=== PATIENT | male | born 1940 | race Caucasian/White ===

== ENCOUNTER → 2016-08-22 | Outpatient (CLI) | payer MEDICARE, OTHER ==
[2015-11-11 15:00] VITALS: BP 128/53
[~2016-08-22] MED LIST: AMLO5TAB2 PO; ASPI-482 PO; DOCU-27 PO; ESOM40CA PO; METH750T2 PO; OLME1TAB5 PO; OXYC1TAB7 PO; citracal PO
--- NOTE | 2016-08-22 10:14 | KCIC ---
4 view lumbar spine dated 08/22/2016. No comparison available. CLINICAL INDICATION: Bilateral leg pain, right greater than left. History of prior fusion. FINDINGS: Lateral and flexion-extension views were obtained. There is been laminectomy and posterior lateral fusion from L2 to L5 with posterior fusion rods and transpedicular screws in place. No significant radiolucency along the screw margins. No evidence of hardware fracture. There is very slight retrolisthesis of T12 on L1 and L1 on L2 which is stable on flexion and extension views. Sagittal alignment is otherwise anatomic. Multilevel spondylosis. IMPRESSION: 1. Laminectomy and posterolateral fusion from L2 to L5 with no apparent complication. 2. Very slight retrolisthesis of T12 on L1 and L1 on L2 with no evidence of instability on flexion-extension views. Electronically signed by: Burak Martin MD (08/22/2016 10:11 AM)
== END | disposition home or self-care (01) ==
LOC: KCIC 09:17
PROVIDERS: ATTEND Neurological Surgery
DX: M43.10 Spondylolisthesis, site unspecified (principal); M79.605 Pain in left leg; M79.604 Pain in right leg
CPT/HCPCS: 72100

== ENCOUNTER → 2016-12-11 | Outpatient (CLI) | payer MEDICARE, OTHER ==
[2015-11-11 15:00] VITALS: BP 128/53
[~2016-12-11] MED LIST changes: +DOCU-109 PO; -DOCU-27 PO; +GADOBUTROL 10 MMOL/10 ML VIAL IV ONE; +OLME1TAB25 PO; -OLME1TAB5 PO
--- NOTE | 2016-12-11 11:57 | KCIC ---
INDICATION: Pain extending into both lower extremities. Prior fusions. TECHNIQUE: Sagittal T1, sagittal T2, sagittal STIR, sagittal postcontrast, axial T1, axial T2, and axial postcontrast sequences are provided. 10 mL of intravenous Gadavist was administered without complication. Despite repeat imaging there is motion degradation. Comparison CT is from November 08, 2015 and there is a MRI June 19, 2015. FINDINGS: There is no change in alignment. There is hardware artifact from pedicle screw and page instrumentation and interbody bone cages which extends from L2 to L5. There is fatty replacement of the endplates at L4-L5. There is disc desiccation at L1-L2 and L5-S1. Conus medullaris is normal in signal intensity and in position. There is no pathologic enhancement. Allowing for motion degradation and hardware artifact, degenerative findings will be estimated below. The numbering system assumes 5 lumbar type vertebral bodies. L1-L2: There is facet and ligamentum flavum hypertrophy with mild foraminal narrowing. L2-L3: Interbody fusion has been extended to include this level since the prior MRI. Hardware artifact from the bone cage extends beyond the posterior margin of the vertebral bodies, appears to narrow the right lateral recess. There is also facet hypertrophy and mild canal stenosis. Decompression likely has been performed. L3-L4: There is probably foraminal narrowing bilaterally secondary to facet hypertrophy. There is hardware artifact limiting evaluation. L4-L5: There is endplate irregularity but no canal stenosis. There is probably mild foraminal narrowing. There is facet hypertrophy. L5-S1: Minimal disc bulge and facet hypertrophy is noted, high-grade bilateral foraminal narrowing is suspected IMPRESSION: 1. Interval extension of the fusion hardware to the level of L2-L3. The L2-L3 bone cage appears to extend beyond the posterior margin of the vertebral bodies. There is probably right lateral recess narrowing at this level. If further workup is required, consider CT. Because of blooming artifact from the hardware, MRI can overestimate the degree of retropulsion of bone cages. 2. Postsurgical changes throughout the remainder of the lumbar spine are similar to prior. Foraminal narrowing at several levels is suspected. Electronically signed by: Benny Contreras MD (12/11/2016 11:54 AM) [facility]
== END | disposition home or self-care (01) ==
LOC: KCIC MRI 08:50
PROVIDERS: ATTEND Neurological Surgery
DX: M54.5 Low back pain (principal); G89.29 Other chronic pain
CPT/HCPCS: 72158; 82565; A9585

== ENCOUNTER → 2017-01-28 | Outpatient (CLI) | payer MEDICARE, OTHER ==
[2015-11-11 15:00] VITALS: BP 128/53
[~2017-01-28] MED LIST changes: +AMLO10TA2 PO; -GADOBUTROL 10 MMOL/10 ML VIAL IV ONE; +IOHEXOL 180 MG/ML 10 ML VIAL. ONE; +PRAV40TA2 PO; +methylPREDNISolone ACETATE 40 MG/ML VIAL. ONE; +methylPREDNISolone ACETATE 80 MG/ML VIAL. ONE
--- NOTE | 2017-01-29 00:19 | PAIN ---
DATE OF SERVICE: 01/28/2017 INITIAL CONSULTATION FOR PAIN CLINIC CHIEF COMPLAINT: Back and bilateral lower extremity pain. HISTORY OF PRESENT ILLNESS: This is a 77-year-old male who presents with history of pain and low back and bilateral lower extremities, more on the right than the left that present bilaterally. This is worse over the past 2 years or so. He has had surgery for instrumentation and then removal of instrumentation and re-instrumentation with multilevel fusion from L1 through L5, which has gradually been increasing not resulted with any specific injury or accident he is aware of, but did very well after the last surgery, but the pain has been returning now once again from his surgery of October 2015. Patient reports no loss of motor function, but significant fatigability in the lower extremities, significant weakness with walking and ambulating, better with sitting or lying down, which generally is awaking him up from sleep, but can occasionally ____ does affect his ability to walk significantly and he is using a cane sometimes, does not have it with him today. He has previously had physical therapy, also previous epidural injections prior to his last surgery and ongoing physical therapy as well. The patient has tried Aleve for the pain, which helps to about a 25% level of decreased pain, but not any further than that. The patient reports disability rate from 0-10, 10 being the worst, as an 8 with family and home responsibilities and recreations as well as occupation, 6 with social activity, sexual behavior, self care, and life support activities. Patient did have MRI scan of the lumbar spine showing hardware extension at the L2-L3 region with interbody fusion cage appearance of migrated posteriorly in the right side, narrowing in the right lateral reset with mild canal stenosis as well. Patient reports again no loss of motor function, but significant fatigability mostly of the right side compared to the left with ambulation. PAST MEDICAL HISTORY: Significant for hypertension, severe smoking, quit many years ago, history of melanoma in 2011 on his back, which has been surgically excised, history of gastroesophageal reflux, hyperlipidemia, peripheral neuropathy, arthritis and osteoporosis. PREVIOUS SURGERIES: Include lumbar fusion as noted, melanoma removed as well, bilateral cataract extractions, left hand trigger finger release. CURRENT MEDICATIONS: Include Benicar, aspirin, Nexium, amlodipine, and pravastatin. ALLERGIES: The patient has no known drug allergies. FAMILY HISTORY: Significant for cancer, blood pressure disorder, skin cancer, and melanoma. SOCIAL HISTORY: The patient quit smoking many years ago, drinks about 1 or 2 alcoholic drinks a month on average. He is , lives with his spouse. Lives locally in [place], [place] and is currently retired. REVIEW OF SYSTEMS: The patient's review of systems is positive for those items mentioned in the history of present illness. All systems reviewed and otherwise negative. It is complete, full and well documented on the patient's chart. PHYSICAL EXAMINATION: VITAL SIGNS: Today, the patient's blood pressure is 151/72, pulse 50, respirations 16, temperature is 98.1 degrees Fahrenheit, height is 6 feet 1 inch, weight is 265 pounds. GENERAL: The patient is awake, alert, oriented and appropriate, very pleasant demeanor. HEENT: Head shows normocephalic, atraumatic. Extraocular movements are intact and symmetrical. Oral cavity, mucous membranes are moist and pink. Dentition is intact. NECK: Shows anterior throat supple without palpable lymphadenopathy noted. Swallow reflex is symmetrical. CHEST: Shows normal on inspection. Breath sounds are clear to auscultation bilaterally. HEART: Shows S1 and S2 clear. No murmurs auscultated. ABDOMEN: Soft, nontender, nondistended. Obese. No palpable organomegaly is noted. No rebound or guarding demonstrated. BACK: Shows spine grossly in the midline. Normal appearing cervical lordotic curvature, thoracic kyphotic curvature, flattening of lumbar lordotic curvature with previously well-healed surgical scars noted in the lumbar distribution x 5. With inspection, the patient's paraspinous musculature appears roughly symmetrical in the lumbar distribution with palpation shows moderate tenderness at the upper, middle and lower distribution of paraspinous muscles bilaterally without radiation without trigger points. The patient shows good rotational motion both laterally as well as extension flexion with some minor limitation with extension, minor limitation on flexion to about 40 degrees and not 45, but without significant pain reported on limitation from previous surgery and mechanical limitation. The patient's lower extremities show deep tendon reflexes at 1+ in the patellar and tendo-calcaneus tendons. Motor exam is strong with dorsiflexion and extension, quadriceps and hamstring flexion rated at 5/5 and equal. Straight leg raise noted to be negative for reproduction of radicular symptoms bilaterally. Peripheral pulses are 1+ posterior tibial and dorsalis pedis pulses. No peripheral edema is noted. No clubbing or cyanosis. Gaenslen's and Marcel's maneuvers are negative bilaterally as well. The patient is able to stand, stand on his toes, but loses balance very quickly. He has a bit of a forward flexed gait and has some shuffled to his gait as well. He does not appear to favor the right or left lower extremity significantly. Again, he is not using any assistive devices to ambulate on his visit today. IMPRESSION: 1. This is a 77-year-old male with long history of low back pain, bilateral lower extremity pain, increasing since surgery in October 2015, initially quite well resolved, worse on the right than the left. 2. MRI scan of the lumbar spine is noted. 3. Extensive history of surgical decompression and instrumentation of the lumbar spine. 4. Hypertension. 5. History of melanoma. PLAN: Options were discussed with the patient including conservative medical management, physical examination and interventional techniques. He would like to pursue interventional techniques. We discussed a lumbar epidural steroid injection using description as well as anatomical models to describe the procedure. Risks were then discussed including but not limited to bleeding, infection, possibility of epidural hematoma, and subsequent neurological compromise, dural puncture, headaches, spinal cord and/or nerve damage, side effects of steroid medication and poor results regarding pain control. The patient understands and wishes to proceed. The patient will return to clinic in approximately 2 weeks for followup. He was counseled to return appointment, activity level and side effects to be aware of. DIAGNOSES: Lumbar radiculopathy, lumbar spinal stenosis, and post lumbar laminectomy syndrome. PROCEDURE: Lumbar epidural steroid injection in translaminal approach at the L2-L3 level using C-arm fluoroscopic guidance and a sterile prep and drape using local anesthetic. MEDICATIONS INJECTED: A total of 120 mg Depo-Medrol plus 10 mL preservative-free normal saline and 2 mL of Isovue for contrast. CONDITION ON DISCHARGE: Stable. The patient tolerated the procedure well, had no complications. DANAE CHOWDHURY MD DR: EVA/angie JOB#: [id number] / [id number]
== END | disposition home or self-care (01) ==
LOC: PNCL 12:57
PROVIDERS: ATTEND Anesthesiology
DX: M48.061 Spinal stenosis, lumbar region without neurogenic claudication (principal); M54.16 Radiculopathy, lumbar region; M96.1 Postlaminectomy syndrome, not elsewhere classified; I10 Essential (primary) hypertension; Z85.820 Personal history of malignant melanoma of skin
CPT/HCPCS: 62323; J1030; J1040

== ENCOUNTER → 2017-02-11 | Outpatient (CLI) | payer MEDICARE, OTHER ==
[2015-11-11 15:00] VITALS: BP 128/53
--- NOTE | 2017-02-11 19:58 | PAIN ---
DATE OF SERVICE: 02/11/2017 DIAGNOSES: Lumbar radiculopathy with lumbar spinal stenosis and post-lumbar laminectomy syndrome. HISTORY OF PRESENT ILLNESS: The patient is a 77-year-old male who returns for followup status post lumbar epidural steroid injection x 1. The patient reports about 50% improvement initially, but the pain returning now in the low back, bilateral lower extremities, basically at baseline over the first 2 weeks or so. The patient reports worse pain after the injection. It took about 2 days for that to go down before the pain was really noticeably better. The patient reports still across the low back and the bilateral lower extremities, posteriorly in the thighs and into the calves as well, rates it a 9 on a scale of 10 at its worst, 7 on average and a 5 at its least, is a 5 today. The patient reports an aching, dull, tingling, cramping, radiating constant pain. The patient reports becoming again more like near baseline or almost to that point. The patient reports it does not awaken him from sleep at night; is better with lying down or sitting; worse with standing, walking, changing positions. The patient reports no new motor or sensory deficits, no new bowel or bladder incontinence. PHYSICAL EXAMINATION: VITAL SIGNS: The patient's blood pressure 139/71, pulse 67, respirations 16, temperature 98.1 degrees Fahrenheit. Height 6 feet 1 inch, weight is 277 pounds. GENERAL: The patient is awake, alert, oriented, appropriate, very pleasant demeanor. HEENT: Head shows normocephalic, atraumatic. Extraocular movements are intact, symmetrical. Oral cavity, mucous membranes are moist and pink. Dentition is intact. NECK: Shows anterior throat supple without palpable lymphadenopathy noted. Swallow reflex is symmetrical. CHEST: Shows normal on inspection. Breath sounds are clear to auscultation bilaterally. HEART: Shows S1 and S2 clear. ABDOMEN: Soft, nontender, nondistended. No palpable organomegaly. No rebound or guarding demonstrated. BACK: Shows spine grossly midline. Well-healed surgical scarring is noted in the lumbar distribution, lumbar flattening of the curvature. Lumbar paraspinous muscle shows symmetrical both with palpation, shows some moderate tenderness bilaterally only diffusely without radiation. No tenderness over the sacrum or sacroiliac regions. Lower extremities showed deep tendon reflexes at 1+ in the patellar and tendo calcaneus tendons. Motor exam is strong with 5/5 dorsiflexion, extension, quadriceps and hamstring flexion and symmetrical. Peripheral pulses are 1+ posterior tibial and dorsalis pedis pulses. No peripheral edema is noted. Options were discussed with the patient and the patient's old chart was reviewed as his current medication regimen and updated. Current review of systems updated today as well. We will proceed with a second lumbar epidural steroid injection today with fluoroscopic guidance. Risks were again discussed including, but not limited to bleeding, infection, possibility of epidural hematoma, subsequent neurological compromise, dural puncture, headaches, spinal cord and/or nerve damage, side effects of steroid medication and poor results regarding pain control. The patient understands and wishes to proceed. The patient will return to clinic in approximately 2 weeks for followup, was counseled on return appointment, activity level and side effects to be aware of. DIAGNOSES: Lumbar radiculopathy with lumbar spinal stenosis and post-lumbar laminectomy syndrome. PROCEDURES: Lumbar epidural steroid injection in translaminar approach at L5-S1 level using a C-arm fluoroscopic guidance under sterile prep and drape using local anesthetic. MEDICATION INJECTED: A total of 120 mg Depo-Medrol plus 10 mL of preservative-free normal saline and 2 mL of Isovue for contrast. CONDITION AT DISCHARGE: Stable. The patient tolerated procedure well, had no complications. DANAE CHOWDHURY MD DR: EVA/angie JOB#: [id number] / [id number]
== END | disposition home or self-care (01) ==
LOC: PNCL 09:31
PROVIDERS: ATTEND Anesthesiology
DX: M48.061 Spinal stenosis, lumbar region without neurogenic claudication (principal); M96.1 Postlaminectomy syndrome, not elsewhere classified; M54.16 Radiculopathy, lumbar region; G62.9 Polyneuropathy, unspecified; E66.9 Obesity, unspecified; Z86.69 Personal history of other diseases of the nervous system and sense organs; Z87.39 Personal history of other diseases of the musculoskeletal system and connective tissue; Z82.49 Family history of ischemic heart disease and other diseases of the circulatory system
CPT/HCPCS: 62323; J1030; J1040

== ENCOUNTER → 2017-03-03 | Outpatient (CLI) | payer MEDICARE, OTHER ==
[2015-11-11 15:00] VITALS: BP 128/53
[~2017-03-03] MED LIST changes: +BUPIVACAINE MPF 0.25% 10 ML VIAL. ONE; -methylPREDNISolone ACETATE 40 MG/ML VIAL. ONE
--- NOTE | 2017-03-03 11:16 | PAIN ---
DATE OF SERVICE: 03/03/2017 PROGRESS NOTE FOR PAIN CLINIC DIAGNOSES: 1. Lumbar radiculopathy with lumbar spinal stenosis and post-lumbar laminectomy syndrome. 2. Right knee joint pain with primary osteoarthritis of the right knee joint. HISTORY OF PRESENT ILLNESS: The patient is a 77 on a male who returns for followup status post lumbar epidural steroid injection x 2. The patient reports about 25%-50% improvement, still significant pain in the low back but much worse in his right knee today. The patient reports that it has been very much more tender with walking, standing, changing positions, still some pain in the low back and the bilateral lower extremities, again worse on the right than the left with aching, dull, cramping and constant in the back and leg but the knee is becoming much more painful, it is 8 on a scale 10 at its worst, 6 on average, 6 on at least and is 6 today. The patient reports his back is about a 5 on a scale of 10 today. The patient reports it awakens him from sleep at night, not only in the back but also his right knee. Knee is worse with walking, standing, changing position, especially climbing stairs putting all his weight on his right side and stepping up into his car. The patient is using a cane in his left hand when he is ambulating. The patient reports no new motor or sensory deficits. No new bowel or bladder incontinence or other complaints. PHYSICAL EXAMINATION: VITAL SIGNS: The patient's blood pressure is 140/70, pulse 52, respirations 18, temperature 97.8 degrees Fahrenheit, height 6 feet 1 inch, weight is 270 pounds. GENERAL: The patient is awake, alert, oriented, appropriate and very pleasant demeanor. HEENT: Head shows normocephalic and atraumatic. Extraocular muscles are intact and symmetrical. Oral cavity: Mucous membranes moist and pink. Dentition is intact. NECK: Shows anterior throat supple without palpable lymphadenopathy noted. Swallow reflex is symmetrical. CHEST: Shows normal with inspection. Breath sounds clear to auscultation bilaterally. HEART: Shows S1 and S2 clear. ABDOMEN: Soft, nontender and nondistended. No palpable organomegaly. No rebound or guarding demonstrated. BACK: Shows spine grossly in the midline. Well healed surgical scar noted in the lumbar distribution. Lumbar paraspinous musculature is symmetrical with a flattened lordotic curvature with palpation shows some [id number] tenderness in the low lumbar distribution only without radiation. Lower extremities show deep tendon reflexes at 1+/4 in the patellar and tendo calcaneus tendons. Motor exam is strong with 5/5 dorsiflexion and extension. Peripheral pulses are 1+ posterior tibial bilaterally. No peripheral edema is noted. The patient's right knee shows good passive motion with standing shows some moderate tenderness reported with only some standing all of his weight on his right knee and flexion of the knee without significant radiation. Options were discussed with the patient. The patient's old chart was reviewed as well as his current medication regimen updated. Current review of systems updated today as well. We will proceed with right intraarticular knee joint injection with fluoroscopic guidance today. Risks were discussed including but not limited to bleeding, infection, possibility of intravascular injection sequelae, spread of local anesthetic and numbness, side effects of steroid medication, exposure to fluoroscopy and poor results regarding pain control. The patient understands and wished to proceed. The patient will return to clinic in approximately 2 weeks for followup, was counseled on return appointment, activity level and side effects to be aware of. DIAGNOSES: 1. Primary osteoarthritis, right knee joint. 2. Lumbar radiculopathy with post-laminectomy syndrome and lumbar spinal stenosis. PROCEDURE: Right intraarticular knee joint injection with C-arm fluoroscopic guidance under sterile prep and drape using local anesthetic. MEDICATION INJECTED: A total of 80 mg Depo-Medrol plus 3 mL of 0.25% bupivacaine as well as 2 mL of Isovue for contrast with negative aspiration. CONDITION AT DISCHARGE: Stable. The patient tolerated procedure well, had no complications. DANAE CHOWDHURY MD DR: EVA/angie JOB#: [id number] / [id number]
== END | disposition home or self-care (01) ==
LOC: PNCL 08:48
PROVIDERS: ATTEND Anesthesiology
DX: M17.11 Unilateral primary osteoarthritis, right knee (principal); M54.16 Radiculopathy, lumbar region; M96.1 Postlaminectomy syndrome, not elsewhere classified; M48.061 Spinal stenosis, lumbar region without neurogenic claudication; G62.9 Polyneuropathy, unspecified; I10 Essential (primary) hypertension; E66.9 Obesity, unspecified; Z87.39 Personal history of other diseases of the musculoskeletal system and connective tissue; Z86.69 Personal history of other diseases of the nervous system and sense organs
CPT/HCPCS: 20610; 77002; J1040; J3490

== ENCOUNTER → 2017-03-19 | Outpatient (CLI) | payer MEDICARE, OTHER ==
[2015-11-11 15:00] VITALS: BP 128/53
[~2017-03-19] MED LIST changes: -BUPIVACAINE MPF 0.25% 10 ML VIAL. ONE; +methylPREDNISolone ACETATE 40 MG/ML VIAL. ONE
--- NOTE | 2017-03-19 10:03 | PN ---
DATE: 03/19/2017 PROGRESS NOTE FOR PAIN CLINIC DIAGNOSES: 1. Lumbar radiculopathy with lumbar spinal stenosis and post-lumbar laminectomy syndrome. 2. Right knee joint pain with primary knee joint osteoarthritis on the right. HISTORY OF PRESENT ILLNESS: The patient is a 77-year-old male who returns for followup status post right knee joint injection. Reports approximately 75% improvement with the knee joint, but his back is beginning to bother him again, then he relapsed. The patient reports it is increasing across the low back into the right lower extremity, primarily in the calf and thigh on the right side, radiating posteriorly. The patient reports it is a 6-7 on a scale of 10 at its worst, 6 at its average and a 5 at its least and is a 6 today. The patient reports it is aching, cramping, radiating, constant, becoming more noticeable and more constant with walking and standing; better with lying down. It does not awaken him from sleep at night. He sleeps to about 8 hours at times. Better with sitting, worse with walking and standing. The patient reports no new motor or sensory deficits, no new bowel or bladder incontinence, and the patient's knee is doing much better. It has increased his activity with a greater ease and comfort with the mobility of his knee, without significant difficulty. PHYSICAL EXAMINATION: VITAL SIGNS: The patient's blood pressure is 140/72, pulse 81, respirations 18 and temperature is 97.9 degrees Fahrenheit. Height is 6 feet 1 inch, weight is 276 pounds. GENERAL: The patient is awake, alert, oriented, appropriate, very pleasant demeanor. HEENT EXAMINATION: Shows normocephalic, atraumatic. Extraocular movements are intact and symmetrical. Oral cavity, mucous membranes moist and pink. Dentition is intact. NECK: Shows anterior throat supple, without palpable lymphadenopathy noted. Swallow reflex symmetrical. CHEST: Shows normal with inspection. Breath sounds are clear to auscultation bilaterally. HEART: Shows S1, S2 clear. No murmurs auscultated. ABDOMEN: Obese, soft, nontender and nondistended. No palpable organomegaly is noted. BACK: Shows spine grossly in the midline. Slight flattening lumbar lordotic curvature, with normal thoracic kyphotic curvature. Lumbar paraspinous muscle shows symmetrical. Well-healed surgical scars are again noted. With palpation, it shows some moderate tenderness bilaterally, but only diffusely without radiation. No tenderness over the sacrum or sacroiliac regions. LOWER EXTREMITIES: Show deep tendon reflexes at 1+ in the patellar and tendo calcaneus tendons. Motor exam is strong with 5/5 dorsiflexion and extension bilaterally. The patient's right knee shows good range, both actively and passively with hinge motion, without pain reported. Options were discussed with the patient. The patient's old chart was reviewed as his current medication regimen updated. Current review of systems updated today as well. We will proceed with a third in a series lumbar epidural steroid injection with fluoroscopic guidance. Risks were again discussed including, but not limited to bleeding, infection, possibility of epidural hematoma, subsequent neurological compromise, dural puncture, headaches, spinal cord and/or nerve damage, side effects of steroid medication and poor results regarding pain control. The patient understands and wishes to proceed. The patient will return to the clinic in approximately 2 weeks for followup. He was counseled on return appointment, activity level and side effects to be aware of. DIAGNOSES: Lumbar radiculopathy with lumbar spinal stenosis and post-lumbar laminectomy syndrome. PROCEDURES: Lumbar epidural steroid injection, translaminar approach at the L5-S1 level using C-arm fluoroscopic guidance under sterile prep and drape using local anesthetic. MEDICATION INJECTED: A total of 120 mg Depo-Medrol plus 10 mL preservative-free normal saline and 2 mL of Isovue for contrast. CONDITION AT DISCHARGE: Stable. The patient tolerated procedure well, had no complications. DANAE CHOWDHURY MD DR: EVA/angie JOB#: [id number] / [id number]
== END | disposition home or self-care (01) ==
LOC: PNCL 08:27
PROVIDERS: ATTEND Anesthesiology
DX: M48.061 Spinal stenosis, lumbar region without neurogenic claudication (principal); M54.16 Radiculopathy, lumbar region; M96.1 Postlaminectomy syndrome, not elsewhere classified; I10 Essential (primary) hypertension; E66.9 Obesity, unspecified; Z86.69 Personal history of other diseases of the nervous system and sense organs; Z87.39 Personal history of other diseases of the musculoskeletal system and connective tissue
CPT/HCPCS: 62323; J1030; J1040

== ENCOUNTER → 2017-05-29 | Outpatient (CLI) | payer MEDICARE, OTHER ==
[~2017-05-29] MED LIST changes: -AMLO10TA2 PO; -AMLO5TAB2 PO; -ASPI-482 PO; +BUPIVACAINE MPF 0.25% 10 ML VIAL.; -DOCU-109 PO; -ESOM40CA PO; +IOHEXOL 180 MG/ML 10 ML VIAL.; -IOHEXOL 180 MG/ML 10 ML VIAL. ONE; -METH750T2 PO; -OLME1TAB25 PO; -OXYC1TAB7 PO; -PRAV40TA2 PO; -citracal PO; -methylPREDNISolone ACETATE 40 MG/ML VIAL. ONE; +methylPREDNISolone ACETATE 80 MG/ML VIAL.; -methylPREDNISolone ACETATE 80 MG/ML VIAL. ONE
== END ==
LOC: PNCL 07:43
DX: M17.11 Unilateral primary osteoarthritis, right knee (principal); M48.061 Spinal stenosis, lumbar region without neurogenic claudication; M54.16 Radiculopathy, lumbar region; I10 Essential (primary) hypertension; G47.39 Other sleep apnea; E66.9 Obesity, unspecified; Z98.890 Other specified postprocedural states; Z85.828 Personal history of other malignant neoplasm of skin; Z82.49 Family history of ischemic heart disease and other diseases of the circulatory system; Z79.01 Long term (current) use of anticoagulants; Z81.8 Family history of other mental and behavioral disorders
CPT/HCPCS: 20610; 77002; J1040; J3490; Q9965

== ENCOUNTER → 2017-06-09 | Outpatient (CLI) | payer MEDICARE, OTHER | END | disposition home or self-care (01) | LOC: KCIC MRI 14:47 | DX: M47.14 Other spondylosis with myelopathy, thoracic region (principal); M48.04 Spinal stenosis, thoracic region; M47.892 Other spondylosis, cervical region; M48.02 Spinal stenosis, cervical region; M25.78 Osteophyte, vertebrae | CPT/HCPCS: 72141; 72146 ==

== ENCOUNTER → 2017-07-23 | Outpatient (CLI) | payer MEDICARE, OTHER | END | disposition home or self-care (01) | LOC: PNCL 09:23 | DX: M54.16 Radiculopathy, lumbar region (principal); M48.061 Spinal stenosis, lumbar region without neurogenic claudication; M17.11 Unilateral primary osteoarthritis, right knee | CPT/HCPCS: G0463 ==

== ENCOUNTER → 2017-07-31 | Outpatient (CLI) | payer MEDICARE, OTHER ==
[~2017-07-31] MED LIST changes: -BUPIVACAINE MPF 0.25% 10 ML VIAL.; +methylPREDNISolone ACETATE 40 MG/ML VIAL.
== END | disposition home or self-care (01) ==
LOC: PNCL 08:02
DX: M48.061 Spinal stenosis, lumbar region without neurogenic claudication (principal); M96.1 Postlaminectomy syndrome, not elsewhere classified; M54.16 Radiculopathy, lumbar region; I10 Essential (primary) hypertension; G47.33 Obstructive sleep apnea (adult) (pediatric); E66.9 Obesity, unspecified; Z85.828 Personal history of other malignant neoplasm of skin; Z98.890 Other specified postprocedural states; G62.9 Polyneuropathy, unspecified; Z82.49 Family history of ischemic heart disease and other diseases of the circulatory system; Z83.79 Family history of other diseases of the digestive system
CPT/HCPCS: 62323; J1030; J1040; Q9965

== ENCOUNTER → 2017-08-03 | Outpatient (CLI) | payer MEDICARE, OTHER ==
[2017-08-03] MEDS: LIDOCAINE 1% Multi-Dose 20 ML VIAL. ID (10:25)
[2017-08-03] MEDS: IOHEXOL 180 MG/ML 10 ML VIAL. IT (10:25)
== END | disposition home or self-care (01) ==
LOC: KCIC 09:27
DX: M51.26 Other intervertebral disc displacement, lumbar region (principal); M48.061 Spinal stenosis, lumbar region without neurogenic claudication; E27.8 Other specified disorders of adrenal gland; I10 Essential (primary) hypertension; Z79.01 Long term (current) use of anticoagulants
CPT/HCPCS: 72132; 72265; Q9965

== ENCOUNTER → 2018-01-13 | Outpatient (CLI) | payer MEDICARE, OTHER ==
[2015-11-11 15:00] VITALS: BP 128/53
[~2018-01-13] MED LIST changes: +AMLO10TA6 PO; +AMLO5TAB7 PO; +ASPI-482 PO; +BUPIVACAINE MPF 0.25% 10 ML VIAL. ONE; +DOCU-109 PO; +ESOM40CA PO; -IOHEXOL 180 MG/ML 10 ML VIAL.; +IOHEXOL 180 MG/ML 10 ML VIAL. ONE; +LIDOCAINE 1% PF 2 ML VIAL. ONE; +METH750T2 PO; +OLME1TAB25 PO; +OXYC1TAB7 PO; +PRAV40TA2 PO; +citracal PO; -methylPREDNISolone ACETATE 40 MG/ML VIAL.; -methylPREDNISolone ACETATE 80 MG/ML VIAL.; +methylPREDNISolone ACETATE 80 MG/ML VIAL. ONE
--- NOTE | 2018-01-14 04:50 | PAIN ---
DATE OF SERVICE: 01/13/2018 DIAGNOSES: 1. Lumbar radiculopathy with lumbar spinal stenosis and post-laminectomy syndrome. 2. Bilateral knee joint pain with primary osteoarthritis, bilateral knee joint. HISTORY OF PRESENT ILLNESS: The patient is a 77-year-old male who returns for followup status post lumbar epidural steroid injections as well as knee joint injections in the past. The patient was last seen on 07/31/2017. The patient had an epidural injection in his low back with good results. The patient reports the pain is not subsiding for more than about 3 weeks though, the pain returns in his low back, bilateral lower extremities, more on the right than the left. His main complaint today, however, is knee joint pain bilaterally, slightly worse on the left than the right. The patient reports it has been worse with walking and standing, especially standing on with all his weight on one leg, climbing stairs is very painful. Better with sitting or lying down, does not necessarily wake him up from sleep, but reports pain in the knee is aching and dull, also sometimes tight, cramping, tingling, becoming more constant in the knees itself as well as in the low back. The patient does have an appointment to see his neurosurgeon coming up in about 2 weeks and would like to get some pain reduced in his knees if possible. The patient reports the pain is 8 at its worst, 7 on average, and a 6 at its least and is a 7 today. The patient reports no new motor or sensory deficits, no new bowel or bladder incontinence or other complaints. PHYSICAL EXAMINATION: VITAL SIGNS: The patient's blood pressure is 161/77, pulse 50, respirations 18, temperature 97.9 degrees Fahrenheit, height is 6 feet 1 inch, weight is 262 pounds. GENERAL: The patient is awake, alert, oriented, appropriate, very pleasant demeanor. HEENT: Shows head is normocephalic, atraumatic. Extraocular movements are intact, symmetrical. Oral cavity: Mucous membranes moist and pink. Dentition is intact. NECK: Shows anterior throat supple without palpable lymphadenopathy noted. Swallow reflex symmetrical. CHEST: Shows normal on inspection. Breath sounds clear to auscultation bilaterally. HEART: Shows S1, S2 clear. No murmurs auscultated. ABDOMEN: Soft, nontender, nondistended. No palpable organomegaly is noted. No rebound or guarding demonstrated. BACK: Shows spine grossly in the midline. Normal appearing cervical lordotic curvature, thoracic kyphotic curvature, some minor flattening of lumbar lordotic curvature. Lumbar paraspinous muscle shows symmetrical on inspection; with palpation shows some moderate tenderness bilaterally but only diffusely throughout the upper, middle and lower distribution of paraspinous muscles. Well-healed surgical scar is again appreciated. The patient's lower extremities show deep tendon reflexes at 1+ in the patellar and tendo-calcaneus tendons. Motor exam is strong with 5/5 dorsiflexion, extension, quadriceps and hamstring flexion. The patient shows good mobility of the patellar tendon and the patella itself without significant pain. With passive motion of the knee joint, the patient shows good passive motion without ratcheting, without popping or displacement; with good hinge joint motion along both of the knees. Peripheral pulses are 1+ posterior tibial. No peripheral edema is noted bilaterally. Options were discussed with the patient. The patient's old chart was reviewed as his current medication regimen updated. Current review of systems updated today as well. We will proceed with bilateral intraarticular knee joint injection today with fluoroscopic guidance. Risks were again discussed including, but not limited to bleeding, infection, possibility of intravascular injection sequelae, spread of local anesthetic and numbness, side effects of steroid medication, exposure to fluoroscopy and poor results regarding pain control. The patient understands and wished to proceed. The patient to return to clinic in approximately 2 weeks for followup, was counseled on return appointment, activity level and side effects to be aware of. DIAGNOSIS: Primary osteoarthritis, bilateral knee joints. PROCEDURES: Bilateral intraarticular knee joint injections using C-arm fluoroscopic guidance under sterile prep and drape using local anesthetic. MEDICATION INJECTED: A total of 80 mg Depo-Medrol, 40 per knee, total of 6 mL of 0.25% bupivacaine, 3 mL per knee after negative aspiration at each site and a total of 1.5 mL each for a total of 3 mL of Isovue for contrast with good local spread without uptake bilaterally. CONDITION AT DISCHARGE: Stable. The patient tolerated procedure well, had no complications. DANAE CHOWDHURY MD DR: EVA/angie JOB#: [id number] / [id number]
== END | disposition home or self-care (01) ==
LOC: PNCL 13:20
PROVIDERS: ATTEND Anesthesiology
DX: M17.0 Bilateral primary osteoarthritis of knee (principal); M48.061 Spinal stenosis, lumbar region without neurogenic claudication; M96.1 Postlaminectomy syndrome, not elsewhere classified; M54.16 Radiculopathy, lumbar region
CPT/HCPCS: 20610; 77002; J1040; J3490; Q9965

== ENCOUNTER → 2018-09-02 | Outpatient (CLI) | payer MEDICARE, OTHER ==
[2015-11-11 15:00] VITALS: BP 128/53
[~2018-09-02] MED LIST changes: -AMLO10TA6 PO; +AMLO10TA8 PO; +AMLO5TAB10 PO; -AMLO5TAB7 PO; -BUPIVACAINE MPF 0.25% 10 ML VIAL. ONE; -IOHEXOL 180 MG/ML 10 ML VIAL. ONE; -LIDOCAINE 1% PF 2 ML VIAL. ONE; -methylPREDNISolone ACETATE 80 MG/ML VIAL. ONE
--- NOTE | 2018-09-03 17:17 | KCIC ---
EXAM: CT lumbar spine without contrast. HISTORY: Lumbar fusion, nonunion, central canal stenosis. TECHNIQUE: CT of the lumbar spine was performed without intravenous contrast. COMPARISON: 08/03/2017. FINDINGS: There is a instrumented anterior and posterior fusion from L2 through L5. Bilateral pedicle screws are fixed by vertical rods at each level. There is periprosthetic lucency about both screws at L2. The pedicle screws at other levels demonstrate no periprosthetic lucency. Both pedicle screws extend beyond the inferior cortex of the pedicles at L5, impinging on the foramina somewhat. An interbody graft at L2-3 extends posterior to the posterior margin of the vertebral bodies by 8 mm on the right greater than left. It results in at least moderate central canal stenosis. There is a vacuum disc phenomenon at this level. The interbody grafts from L3 through L5 are in expected position. Fusion appears solid across L3-L5. There are partial laminectomy changes at L2-3. The inferior articular processes have been at least partially resected bilaterally from L2 through L4. Alignment is maintained. No fractures are identified. Sacroiliac osteoarthritis is mild bilaterally. Atherosclerotic calcifications are noted. A left adrenal nodule is partially visualized and indeterminate measuring 15 Hounsfield units. It measures 2.2 cm. At L1-2, there is a small posterior disc bulge. Facet and ligamentum flavum hypertrophy is moderate. Central canal stenosis is mild to moderate. Neural foraminal stenosis is moderate bilaterally. At L2-3, there appears to be at least moderate central canal stenosis at least superiorly secondary to impingement on the canal by the interbody cage. The canal is decompressed by laminectomies more inferiorly. Neural foraminal stenosis appears mild on the right greater than left. At L3-4, there is a small residual posterior osteophyte complex. Central canal stenosis appears moderate. Both neural foramina appear decompressed. At L4-5, there is a small residual disc bulge/osteophyte complex. There is no clear stenosis. At L5-S1, there is a small posterior disc bulge. This is largest in the foraminal territory is. Neural foraminal stenosis appears moderate bilaterally. IMPRESSION: 1. L2-L5 instrumented anterior and posterior fusion. Periprosthetic lucency about both pedicle screws at L2 is consistent with loosening or infection. The interbody cage at L2-3 protrudes into the central canal by 8 mm resulting in at least moderate central canal stenosis. There is no clear solid interbody fusion at this level. 2. Fusion appears solid without periprosthetic lucency from L3 through L5. 3. Central canal stenosis appears moderate at L3-4 and mild to moderate at L1-2. 4. Neural foraminal stenosis moderate bilaterally at L5-S1, partially secondary to impingement by the pedicle screws. Lesser neural foraminal stenosis at other levels as detailed above. 5. 2.2 cm left adrenal nodule. This is indeterminate by characteristics but has been present chronically and is likely a benign adenoma. *One or more of the following individualized dose reduction techniques were utilized for this examination: 1. Automated exposure control. 2. Adjustment of the mA and/or kV according to patient size. 3. Use of iterative reconstruction technique. Electronically signed by: Damon Dasilva MD (09/03/2018 5:14 PM) [facility]
== END | disposition home or self-care (01) ==
LOC: KCIC CT 13:13
PROVIDERS: ATTEND Neurological Surgery
DX: M47.818 Spondylosis without myelopathy or radiculopathy, sacral and sacrococcygeal region (principal); M89.38 Hypertrophy of bone, other site; M48.07 Spinal stenosis, lumbosacral region; M25.78 Osteophyte, vertebrae; E27.8 Other specified disorders of adrenal gland; I10 Essential (primary) hypertension; Z79.01 Long term (current) use of anticoagulants
CPT/HCPCS: 72131

== ENCOUNTER → 2018-12-03 | Outpatient (CLI) | payer MEDICARE, OTHER ==
[2015-11-11 15:00] VITALS: BP 128/53
[~2018-12-03] MED LIST changes: +OXYC1TAB15 PO; +PANT40TA77 PO
[2018-12-03 14:53] LABS: BASO % 1 % (0-3); EOS # 0.2 x10^3/uL (0.0-0.7); EOS % 2 % (0-3); HEMATOCRIT 40.6 % (39.0-53.0); HEMOGLOBIN 14.2 g/dL (13.0-17.5); LYMPH # 1.4 x10^3/uL (1.0-4.8); LYMPH % 18 % (24-48); MEAN CORPUSCULAR HEMOGLOBIN 33 pg (25-35); MEAN CORPUSCULAR HGB CONC 35 g/dL (31-37); MEAN CORPUSCULAR VOLUME 95 fL (79-100); MONO # 0.6 x10^3/uL (0.0-1.1); MONO % 8 % (0-9); NEUT # 5.2 x10^3/uL (1.8-7.7); NEUT % 71 % (31-73); PLATELET COUNT 212 x10^3/uL (140-400); RED BLOOD COUNT 4.29 x10^6/uL (4.30-5.70); RED CELL DISTRIBUTION WIDTH 13.2 % (11.5-14.5); WHITE BLOOD COUNT 7.4 x10^3/uL (4.0-11.0)
[2018-12-03 15:20] LABS: PROTHROMBIN TIME PATIENT 13.5 SEC (11.7-14.0)
[2018-12-03 15:45] LABS: ALBUMIN 3.4 g/dL (3.4-5.0); CALCIUM 8.6 mg/dL (8.5-10.1); CREATININE 0.9 mg/dL (0.7-1.3); GFR 81.2; POTASSIUM 4.2 mmol/L (3.5-5.1); TOTAL PROTEIN 6.7 g/dL (6.4-8.2)
== END | disposition home or self-care (01) ==
LOC: SURGPAT 13:10
PROVIDERS: ATTEND Neurological Surgery
DX: Z01.818 Encounter for other preprocedural examination (principal); M48.062 Spinal stenosis, lumbar region with neurogenic claudication; M96.0 Pseudarthrosis after fusion or arthrodesis
CPT/HCPCS: 36415; 80053; 82306; 85025; 85610; 85730; 87641

== ENCOUNTER 2018-12-09 06:17 | Inpatient (IN) | payer MEDICARE, OTHER ==
--- NOTE | 2018-12-08 17:30 | HP ---
ADMIT DATE: 12/09/2018. PREOPERATIVE HISTORY AND PHYSICAL DATE OF SURGERY: 12/09/2018. HISTORY OF PRESENT ILLNESS: The patient is a pleasant 78-year-old who has difficulty with pain when he stands. He has right greater than left lower back pain and right greater than left hip and lateral thigh pain. Standing and walking increases pain. Sitting helps him. He has had significant amounts of conservative measures including epidural steroid injections and physical therapy. At this point, I am recommending removal of hardware at L2 through L5 and placement of hardware at L2-L3 along with removal and replacement of interbody fusion cage at L2-L3 and posterolateral fusion, L2-L3. I did discuss this with him in detail. PAST MEDICAL HISTORY: Skin cancer, hypertension, shingles and heart murmur. PAST SURGICAL HISTORY: Lumbar microdiscectomy in 2006, lumbar spinal fusion in 2008, melanoma removal in 2011, removal of hardware and fusion L2-L3 replacement of hardware L3 through L5 in 10/2015. FAMILY HISTORY: The patient has a family history of cancer, heart disease and hypertension. SOCIAL HISTORY: He is retired and . He exercises daily by walking and stretching. He denies smoking and consumes alcohol 1-2 times per month. ALLERGIES: No known drug allergies. CURRENT MEDICATIONS: Aspirin, amlodipine, Aleve, olmesartan, medoxomil and pantoprazole sodium. REVIEW OF SYSTEMS: A 12-point review of systems was obtained and is noncontributory except for that mentioned above. PHYSICAL EXAMINATION: NEUROSURGERY EXAMINATION: GENERAL APPEARANCE: Alert, pleasant and in no acute distress. HEAD: Normocephalic and atraumatic. SKIN: Warm and dry. Well-healed incision. MUSCULOSKELETAL: Lumbar paraspinal muscle bulk is normal, restricted range of motion in the lower extremities and lumbar spine. [id number] tenderness of the lower lumbar spine with palpation, normal range of motion of the lower extremities bilaterally. EXTREMITIES: No clubbing, cyanosis or edema. NEUROLOGIC: Alert and oriented x 3, normal recent and remote memory. Strength 5/5 in bilateral lower extremities, sensory was intact to light touch in bilateral lower extremities. Reflexes were present and symmetric in bilateral lower extremities, negative straight leg raising bilaterally, forward stooped gait, using a cane. IMAGING DATA: Reviewed. ASSESSMENT: Lumbar stenosis, Pseudoarthrosis. PLAN: He would like to proceed with the above-mentioned surgery including removal of hardware L2 through L5, placement of hardware L2 through L3 with replacement of interbody fusion cage L2 through L3 and posterolateral fusion L2 through L3. He would like to proceed with surgery. I have reviewed the technique, risks involved and expected postoperative course. All questions have been answered. We will make the arrangements. APARNA BRADLEY MD DR: NISHA/angie JOB#: [id number] / [id number] ARCHIE
[~2018-12-09] VITALS: Ht 185.4 cm; Wt 121.4 kg
[2018-12-09] VITALS (9 sets, daily range): BP systolic 128–142; BP diastolic 62–90
[~2018-12-09 06:17] MED LIST changes: +BACITRACIN 50,000 UNIT in IV NORMAL SALINE 1000ML BAG 1,000 ML IRR ONE; +BUPIVACAINE-EPI 0.5%-1:200000 MPF 30 ML VIAL. INJ ONE; -OXYC1TAB15 PO; +ceFAZolin SODIUM 3 GM in IV DEXTROSE 5% 100ML 100 ML IV PRN
[2018-12-09] MEDS ORDERED: ONDANSETRON PF 4 MG/2 ML VIAL. IV PRN ×2 (07:00→14:45)
[2018-12-09] MEDS ORDERED: MORPHINE SULFATE 2 MG/ML VIAL. IV PRN (07:00)
[2018-12-09] MEDS ORDERED: PROCHLORPERAZINE 10 MG/2 ML VIAL. IV PRN (07:00)
[2018-12-09] MEDS ORDERED: IV RINGERS,LACTATED 1000ML 1,000 ML IV SCH (07:00)
[2018-12-09] MEDS ORDERED: HYDROmorphone 2 MG/ML VIAL IV PRN (07:00)
[2018-12-09] MEDS ORDERED: fentaNYL PF VIAL 100 MCG/2 ML VIAL IV PRN ×3 (07:00→14:45)
[2018-12-09] MEDS ORDERED: KETOROLAC 60 MG/2 ML VIAL. ONE (07:06)
[2018-12-09] MEDS ORDERED: THROMBIN TOPICAL 20,000 UNIT SPRAY.SYRN KIT TP ONE (07:06)
[2018-12-09] MEDS ORDERED: GELATIN SPONGE SIZE 100. ONE (07:06)
[2018-12-09] MEDS ORDERED: LIDOCAINE 2% PF 5 ML VIAL. ONE (07:53)
[2018-12-09] MEDS ORDERED: DEXAMETHASONE SOD PHOS 20 MG/5 ML VIAL. ONE (07:53)
[2018-12-09] MEDS ORDERED: ONDANSETRON PF 4 MG/2 ML VIAL. ONE (07:53)
[2018-12-09] MEDS ORDERED: PROPOFOL 20 ML IV ONE (07:53)
[2018-12-09] MEDS ORDERED: FAMOTIDINE 20 MG/2 ML VIAL ONE (07:53)
[2018-12-09] MEDS ORDERED: REMIFENTANIL 2 MG VIAL. IV ONE ×3 (07:54→13:14)
[2018-12-09] MEDS ORDERED: SUCCINYLCHOLINE 200 MG/10 ML VIAL. ONE (07:54)
[2018-12-09] MEDS ORDERED: fentaNYL PF VIAL 100 MCG/2 ML VIAL ONE (07:54)
[2018-12-09] MEDS ORDERED: HYDROmorphone 2 MG/ML VIAL ONE (07:54)
[2018-12-09] MEDS ORDERED: PHENYLEPHRINE 10 MG/ML VIAL. ONE (07:54)
[2018-12-09] MEDS ORDERED: PHENYLEPHRINE in 0.9% NACL PF 1 MG/10 ML SYRINGE. IV ONE (07:54)
[2018-12-09] MEDS ORDERED: PROPOFOL 300 ML IV ONE (08:00)
[2018-12-09] MEDS ORDERED: GLYCOPYRROLATE 1 MG/5 ML VIAL. ONE (09:30)
[2018-12-09] MEDS ORDERED: ePHEDrine PF IN SALINE 50 MG/10 ML SYRINGE. IV ONE (09:31)
--- NOTE | 2018-12-09 09:40 | RAD ---
Examination: CT LUMBAR SPINE WO CONTRAST History: Lumbar stenosis Comparison/Correlation: 09/02/2018 CT lumbar spine Findings: Axial images of the lumbar spine were obtained. Sagittal and coronal reformatted images were provided. Mild emphysematous involvement of the lung bases noted. There is a instrumented anterior and posterior fusion from L2 through L5. Bilateral pedicle screws are fixed by vertical rods at each level. There is periprosthetic lucency about both screws at L2. The pedicle screws at other levels demonstrate no periprosthetic lucency. Both pedicle screws extend beyond the inferior cortex of the pedicles at L5, impinging on the foramina somewhat. An interbody graft at L2-3 extends posterior to the posterior margin of the vertebral bodies by 8 mm on the right greater than left. It results in at least moderate central canal stenosis. There is a vacuum disc phenomenon at this level. The interbody grafts from L3 through L5 are in expected position. Fusion appears solid across L3-L5. There are partial laminectomy changes at L2-3. The inferior articular processes have been at least partially resected bilaterally from L2 through L4. Alignment is maintained. No fractures are identified. Sacroiliac osteoarthritis is mild bilaterally. Atherosclerotic calcifications are noted. A left adrenal nodule is partially visualized and indeterminate measuring 15 Hounsfield units. It measures 2.2 cm. At L1-2, there is a small posterior disc bulge. Facet and ligamentum flavum hypertrophy is moderate. Central canal stenosis is mild to moderate. Neural foraminal stenosis is moderate bilaterally. At L2-3, there appears to be at least moderate central canal stenosis at least superiorly secondary to impingement on the canal by the interbody cage. The canal is decompressed by laminectomies more inferiorly. Neural foraminal stenosis appears mild on the right greater than left. At L3-4, there is a small residual posterior osteophyte complex. Central canal stenosis appears moderate. Both neural foramina appear decompressed. At L4-5, there is a small residual disc bulge/osteophyte complex. There is no clear stenosis. At L5-S1, there is a small posterior disc bulge. This is largest in the foraminal territory is. Neural foraminal stenosis appears moderate bilaterally. Impression: 1. L2-L5 instrumented anterior and posterior fusion. Periprosthetic lucency about both pedicle screws at L2 is consistent with loosening or infection. The interbody cage at L2-3 protrudes into the central canal by 8 mm resulting in at least moderate central canal stenosis. There is no clear solid interbody fusion at this level. 2. Fusion appears solid without periprosthetic lucency from L3 through L5. 3. Central canal stenosis appears moderate at L3-4 and mild to moderate at L1-2. 4. Neural foraminal stenosis moderate bilaterally at L5-S1, partially secondary to impingement by the pedicle screws. Lesser neural foraminal stenosis at other levels as detailed above. 5. 2.2 cm left adrenal nodule has remained stable and is likely a benign adenoma. PQRS Compliance Statement: One or more of the following individualized dose reduction techniques were utilized for this examination: 1. Automated exposure control 2. Adjustment of the mA and/or kV according to patient size 3. Use of iterative reconstruction technique Electronically signed by: Cleveland Canales MD (12/09/2018 9:37 AM) [facility]
[2018-12-09] MEDS ORDERED: DESFLURANE > 120 MINUTES IH ONE (13:11)
[2018-12-09] MEDS ORDERED: 0.9 % SODIUM CHLORIDE 20 ML VIAL. IJ ONE (13:20)
[2018-12-09] MEDS ORDERED: ceFAZolin SODIUM 1 GM VIAL ONE (13:20)
[2018-12-09] MEDS ORDERED: CALCIUM CARBONATE 500 MG TAB.CHEW PO PRN (14:45)
[2018-12-09] MEDS ORDERED: oxyCODONE/APAP 5/325 1 TAB TABLET PO PRN (14:45)
[2018-12-09] MEDS ORDERED: MAGNESIUM HYDROXIDE 2,400 MG/30 ML ORAL.SUSP. PO PRN (14:45)
[2018-12-09] MEDS ORDERED: 0.9 % SODIUM CHLORIDE 10 ML DISP.SYRIN. IV PRN (14:45)
[2018-12-09] MEDS ORDERED: MAG HYDROX/ALUMINUM HYD/SIMETH 30 ML ORAL.SUSP PO PRN (14:45)
[2018-12-09] MEDS ORDERED: diphenhydrAMINE HCL 25 MG CAPSULE PO PRN (14:45)
[2018-12-09] MEDS ORDERED: NALOXONE 0.4 MG/ML VIAL. IV PRN ×2 (14:45)
[2018-12-09] MEDS ORDERED: ACETAMINOPHEN 325 MG TABLET. PO PRN (14:45)
[2018-12-09] MEDS: POTASSIUM CL 20MEQ D5-0.45NACL 1,000 ML IV SCH (17:47)
[2018-12-09] MEDS: oxyCODONE/APAP 5/325 1 TAB TABLET PO PRN ×2 (17:53→21:41)
[2018-12-09] MEDS: ceFAZolin SODIUM IV Push 1 GM VIAL. IVP SCH (17:54)
--- NOTE | 2018-12-09 18:16 | NUR ---
Patient arrived to the floor from PACU in a bed around 1725. at bedside. IV in left hand infusing properly without complications. O2 running at 2L per NC. Vital signs stable. VIANEY's on bilateral feet and thigh high TEDs on. Patient rating pain at 6 but states that 5 is comfortable. updated that for therapy tomorrow patient needs his LSO brace from his previous surgery so she stated she will bring it in the morning. Three surgical dressings are present which are all dry/intact with only a scant amount of drainage noted on one of them. Patient is tolerating PO ice chips well as well as some water so dinner has been ordered per patient request. Will continue to monitor.
[2018-12-09] MEDS: DOCUSATE SODIUM 100 MG CAPSULE. PO SCH (21:42)
--- NOTE | 2018-12-09 23:00 | NUR ---
Patient has attempted to void 2 times without success. States he doesn't feel the need. Bladder scan shows less huston 310cc. Patient encouraged to drink more and IV fluids are running. will recheck patient in 2 hours. Addendum: 12/09/18 at 2330 by RANJITH LOWRY RN Amended: Links added.
[2018-12-10] MEDS: ceFAZolin SODIUM IV Push 1 GM VIAL. IVP SCH ×2 (02:00→08:37)
[2018-12-10 02:40] VITALS: BP 137/65
[2018-12-10] MEDS: PANTOPRAZOLE 40 MG TABLET.DR. PO SCH (06:49)
[2018-12-10] MEDS: POTASSIUM CL 20MEQ D5-0.45NACL 1,000 ML IV SCH ×2 (06:50→20:40)
[2018-12-10 07:22] VITALS: BP 137/77
[2018-12-10] MEDS: hydroCHLOROthiazide 25 MG TABLET PO SCH ×2 (08:36→16:21)
[2018-12-10] MEDS: DOCUSATE SODIUM 100 MG CAPSULE. PO SCH ×2 (08:36→21:05)
[2018-12-10] MEDS: ASPIRIN ENTERIC COATED 81 MG TABLET.DR. PO SCH (08:36)
[2018-12-10] MEDS: amLODIPine BESYLATE 5 MG TABLET PO SCH (08:38)
[2018-12-10 12:00] VITALS: BP 132/55
--- NOTE | 2018-12-10 12:07 | PDOC ---
PROGRESS NOTES Subjective Subjective POD #1 up ambulating in room to bathroom, sitting up in chair pain well controlled required straight cath Objective Objective Vital Signs Date Time Temp Pulse Resp B/P (MAP) Pulse Ox O2 Delivery O2 Flow Rate FiO2 12/10/18 12:00 98.0 53 20 132/55 (80) Room Air 98.0 12/10/18 07:22 93 12/10/18 02:40 2.0 Intake and Output 12/10/18 06:59 Intake Total 4010 ml Output Total 2200 ml Balance 1810 ml Intake Oral 2310 ml IV Total 1700 ml Output Urine Total 2050 ml Estimated Blood Loss 150 ml Physical Exam General: Alert, Oriented X3, Cooperative, No acute distress MUSCULOSKELETAL: Other (SCHWARTZ) Neuro: Normal speech Skin: Other (dressing intact, some bloody drainge, changed) Assessment Assessment Problems Medical Problems: (1) Lumbar stenosis Status: Acute Plan Plan of Care continue with PT brace when up likely dc tomorrow Comment Review of Relevant I have reviewed the following items julius (where applicable) has been applied. Medications Current Medications Bacitracin 04867 unit/Sodium Chloride 1,000 ml @ 1,000 mls/hr 1X ONCE IRR Last administered on 12/09/18at 10:33; Start 12/09/18 at 06:00; Stop 12/09/18 at 06:59; Status DC Bupivacaine HCl/ Epinephrine Bitart (Sensorcain-Epi 0.5%-1:855201 Mpf) 30 ml 1X ONCE INJ ; Start 12/08/18 at 12:00; Stop 12/08/18 at 12:01; Status Cancel Bupivacaine HCl/ Epinephrine Bitart (Sensorcain-Epi 0.5%-1:652688 Mpf) 30 ml 1X ONCE INJ Last administered on 12/09/18at 15:06; Start 12/09/18 at 06:00; Stop 12/09/18 at 06:01; Status DC Ondansetron HCl (Zofran) 4 mg PRN Q6HRS PRN IV NAUSEA/VOMITING; Start 12/09/18 at 07:00; Stop 12/09/18 at 21:00; Status DC Fentanyl Citrate (Fentanyl 2ml Vial) 25 mcg PRN Q5MIN PRN IV MILD PAIN 1-3; Start 12/09/18 at 07:00; Stop 12/09/18 at 21:00; Status DC Fentanyl Citrate (Fentanyl 2ml Vial) 50 mcg PRN Q5MIN PRN IV MODERATE TO SEVERE PAIN; Start 12/09/18 at 07:00; Stop 12/09/18 at 21:00; Status DC Morphine Sulfate (Morphine Sulfate) 1 mg PRN Q10MIN PRN IV SEVERE PAIN 7-10; Start 12/09/18 at 07:00; Stop 12/09/18 at 21:00; Status DC Ringer's Solution 1,000 ml @ 30 mls/hr Q24H IV Last administered on 12/09/18at 17:53; Start 12/09/18 at 07:00; Stop 12/09/18 at 18:59; Status DC Hydromorphone HCl (Dilaudid) 0.5 mg PRN Q10MIN PRN IV SEV PAIN, Second choice; Start 12/09/18 at 07:00; Stop 12/09/18 at 21:00; Status DC Prochlorperazine Edisylate (Compazine) 5 mg PACU PRN PRN IV NAUSEA, MRX1; Start 12/09/18 at 07:00; Stop 12/09/18 at 21:00; Status DC Cefazolin Sodium 3 gm/Dextrose 100 ml @ 200 mls/hr 1X PREOP PRN IV PRIOR TO PROCEDURE; Start 12/09/18 at 06:00; Stop 12/09/18 at 15:00; Status DC Gelatin (Gelfoam Size 100) 1 each STK-MED ONCE .ROUTE Last administered on 12/09/18at 10:33; Start 12/09/18 at 07:06; Stop 12/09/18 at 07:07; Status DC Ketorolac Tromethamine (Toradol Im) 60 mg STK-MED ONCE .ROUTE Last administered on 12/09/18at 10:33; Start 12/09/18 at 07:06; Stop 12/09/18 at 07:07; Status DC Thrombin 20,000 unit STK-MED ONCE TP Last administered on 12/09/18at 10:33; Start 12/09/18 at 07:06; Stop 12/09/18 at 07:07; Status DC Propofol 20 ml @ As Directed STK-MED ONCE IV ; Start 12/09/18 at 07:53; Stop 12/09/18 at 07:54; Status DC Dexamethasone Sodium Phosphate (Decadron) 20 mg STK-MED ONCE .ROUTE ; Start 12/09/18 at 07:53; Stop 12/09/18 at 07:54; Status DC Famotidine (Pepcid Vial) 20 mg STK-MED ONCE .ROUTE ; Start 12/09/18 at 07:53; Stop 12/09/18 at 07:54; Status DC Lidocaine HCl (Lidocaine Pf 2% Vial) 5 ml STK-MED ONCE .ROUTE ; Start 12/09/18 at 07:53; Stop 12/09/18 at 07:54; Status DC Ondansetron HCl (Zofran) 4 mg STK-MED ONCE .ROUTE ; Start 12/09/18 at 07:53; Stop 12/09/18 at 07:54; Status DC Fentanyl Citrate (Fentanyl 2ml Vial) 100 mcg STK-MED ONCE .ROUTE ; Start 12/09/18 at 07:54; Stop 12/09/18 at 07:54; Status DC Succinylcholine Chloride (Anectine) 200 mg STK-MED ONCE .ROUTE ; Start 12/09/18 at 07:54; Stop 12/09/18 at 07:54; Status DC Hydromorphone HCl (Dilaudid) 2 mg STK-MED ONCE .ROUTE ; Start 12/09/18 at 07:54; Stop 12/09/18 at 07:54; Status DC Remifentanil HCl (Ultiva) 2 mg STK-MED ONCE IV ; Start 12/09/18 at 07:54; Stop 12/09/18 at 07:55; Status DC Phenylephrine HCl (PHENYLEPHRINE in 0.9% NACL PF) 1 mg STK-MED ONCE IV ; Start 12/09/18 at 07:54; Stop 12/09/18 at 07:55; Status DC Phenylephrine HCl (Matthew-Synephrine Inj) 10 mg STK-MED ONCE .ROUTE ; Start 12/09/18 at 07:54; Stop 12/09/18 at 07:55; Status DC Propofol 300 ml @ As Directed STK-MED ONCE IV ; Start 12/09/18 at 08:00; Stop 12/09/18 at 08:01; Status DC Glycopyrrolate (Robinul) 1 mg STK-MED ONCE .ROUTE ; Start 12/09/18 at 09:30; Stop 12/09/18 at 09:31; Status DC Ephedrine Sulfate (ePHEDrine PF IN SALINE SYRINGE) 50 mg STK-MED ONCE IV ; Start 12/09/18 at 09:31; Stop 12/09/18 at 09:31; Status DC Remifentanil HCl (Ultiva) 2 mg STK-MED ONCE IV ; Start 12/09/18 at 11:11; Stop 12/09/18 at 11:11; Status DC Desflurane (Suprane) 90 ml STK-MED ONCE IH ; Start 12/09/18 at 13:11; Stop 12/09/18 at 13:11; Status DC Remifentanil HCl (Ultiva) 2 mg STK-MED ONCE IV ; Start 12/09/18 at 13:14; Stop 12/09/18 at 13:14; Status DC Cefazolin Sodium (Ancef) 1 gm STK-MED ONCE .ROUTE ; Start 12/09/18 at 13:20; Stop 12/09/18 at 13:20; Status DC Sodium Chloride (SODIUM CHLORIDE 20ml) 20 ml STK-MED ONCE IJ ; Start 12/09/18 at 13:20; Stop 12/09/18 at 13:20; Status DC Amlodipine Besylate (Norvasc) 5 mg DAILY PO Last administered on 12/10/18at 08:38; Start 12/10/18 at 09:00 Aspirin (Ecotrin) 81 mg DAILY PO Last administered on 12/10/18at 08:38; Start 12/10/18 at 09:00 Pantoprazole Sodium (Protonix) 40 mg DAILYAC PO Last administered on 12/10/18at 06:50; Start 12/10/18 at 07:30 Losartan Potassium (Cozaar) 100 mg DAILY PO ; Start 12/10/18 at 09:00 Fentanyl Citrate (Fentanyl 2ml Vial) 50 mcg PRN Q2HR PRN IV PAIN; Start 12/09/18 at 14:45 Acetaminophen (Tylenol) 650 mg PRN Q6HRS PRN PO MILD PAIN / TEMP; Start 12/09/18 at 14:45 Al Hydroxide/Mg Hydroxide (Mylanta Plus Xs) 30 ml PRN Q3HRS PRN PO HEARTBURN / GAS; Start 12/09/18 at 14:45 Calcium Carbonate/ Glycine (Tums) 500 mg PRN Q3HRS PRN PO INDIGESTION; Start 12/09/18 at 14:45 Diphenhydramine HCl (Benadryl) 25 mg PRN Q6HRS PRN PO ITCHING; Start 12/09/18 at 14:45 Naloxone HCl (Narcan) 0.1 mg PRN Q2MIN PRN IV ADMIN; Start 12/09/18 at 14:45 Sodium Chloride (Normal Saline Flush) 3 ml QSHIFT PRN IV AFTER MEDS AND BLOOD DRAWS; Start 12/09/18 at 14:45 Potassium Chloride/Dextrose/ Sod Cl 1,000 ml @ 75 mls/hr [id number] IV Last administered on 12/10/18at 06:50; Start 12/09/18 at 18:00 Naloxone HCl (Narcan) 0.4 mg PRN Q2MIN PRN IV SEE INSTRUCTIONS; Start 12/09/18 at 14:45 Oxycodone/ Acetaminophen (Percocet 5/325) 1 tab PRN Q4HRS PRN PO MILD PAIN, 1ST CHOICE Last administered on 12/10/18at 08:38; Start 12/09/18 at 14:45 Oxycodone/ Acetaminophen (Percocet 5/325) 2 tab PRN Q4HRS PRN PO MODERATE PAIN, SEVERE PAIN Last administered on 12/09/18at 21:47; Start 12/09/18 at 14:45 Docusate Sodium (Colace) 100 mg BID PO Last administered on 12/10/18at 08:38; Start 12/09/18 at 21:00 Magnesium Hydroxide (Milk Of Magnesia) 2,400 mg PRN Q12HR PRN PO CONSTIPATION; Start 12/09/18 at 14:45 Ondansetron HCl (Zofran) 4 mg PRN Q6HRS PRN IV NAUESA, 1ST CHOICE; Start 12/09/18 at 14:45 Cefazolin Sodium (Ancef) 1 gm Q8H IVP Last administered on 12/10/18at 08:38; Start 12/09/18 at 18:00; Stop 12/10/18 at 10:01; Status DC Hydrochlorothiazide (Hydrodiuril) 25 mg DAILY PO Last administered on 12/10/18at 08:38; Start 12/10/18 at 09:00 Polyethylene Glycol (miraLAX PACKET) 17 gm DAILY PO ; Start 12/11/18 at 09:00 Active Scripts Active Reported Protonix (Pantoprazole Sodium) 40 Mg Tablet.dr 40 Mg PO DAILYAC Amlodipine Besylate 10 Mg Tablet 5 Mg PO DAILY Benicar Hct 40-25 Mg Tablet (Olmesartan/Hydrochlorothiazide) 1 Each Tablet 1 Tab PO DAILY Aspir 81 (Aspirin) 81 Mg Tablet. 1 Tab PO DAILY Vitals/I & O Vital Sign - Last 24 Hours 12/09/18 12/09/18 12/09/18 12/09/18 15:39 15:39 15:54 16:09 Temp 99.0 99.0 Pulse 56 85 56 Resp 20 22 20 B/P (MAP) 104/54 104/45 90/57 Pulse Ox 98 100 99 O2 Delivery Mask Simple Mask Simple Mask Simple Mask O2 Flow Rate 10 10 10 10 12/09/18 12/09/18 12/09/18 12/09/18 16:24 16:39 16:54 16:57 Temp 98.1 98.1 Pulse 56 50 66 Resp 20 20 20 B/P (MAP) 100/50 125/49 122/55 Pulse Ox 93 92 92 O2 Delivery Nasal Cannula Nasal Cannula Nasal Cannula Nasal Cannula O2 Flow Rate 2 2 2 2 12/09/18 12/09/18 12/09/18 12/09/18 17:09 17:30 17:45 17:54 Temp 97.7 97.8 97.7 97.8 Pulse 69 75 Resp 20 16 18 18 B/P (MAP) 125/65 130/62 (84) 128/64 (85) Pulse Ox 96 94 96 96 O2 Delivery Nasal Cannula Nasal Cannula Nasal Cannula Nasal Cannula O2 Flow Rate 2.0 2.0 2.0 12/09/18 12/09/18 12/09/18 12/09/18 18:00 18:05 18:15 18:43 Temp 97.8 97.8 97.8 97.8 Pulse 79 75 80 Resp 18 18 B/P (MAP) 136/66 (89) 140/69 (92) 135/71 (92) Pulse Ox 96 92 94 O2 Delivery Nasal Cannula Nasal Cannula Nasal Cannula Nasal Cannula O2 Flow Rate 2.0 2.0 2.0 2.0 9/1212/09/18 12/09/18 12/09/18 19:15 20:06 20:07 20:15 Pulse 81 84 Resp 18 20 B/P (MAP) 142/67 (92) 131/63 (85) Pulse Ox 95 94 94 O2 Delivery Room Air Nasal Cannula Nasal Cannula O2 Flow Rate 2.0 2.0 2.0 12/09/18 12/09/18 12/09/18 12/10/18 21:30 23:00 23:22 02:40 Temp 97.7 97.7 98.6 97.7 97.7 98.6 Pulse 70 70 74 Resp 20 20 18 22 B/P (MAP) 128/90 (103) 130/90 (103) 137/65 (89) Pulse Ox 93 95 94 96 O2 Delivery Room Air Nasal Cannula Nasal Cannula Nasal Cannula O2 Flow Rate 2.0 2.0 2.0 12/10/18 12/10/18 12/10/18 12/10/18 07:22 07:48 08:38 12:00 Temp 97.9 98.0 97.9 98.0 Pulse 55 60 53 Resp 20 20 B/P (MAP) 137/77 (97) 149/63 132/55 (80) Pulse Ox 93 O2 Delivery Room Air Nasal Cannula Room Air Intake and Output 12/09/18 12/09/18 12/10/18 14:59 22:59 06:59 Intake Total 3010 ml 1000 ml Output Total 1550 ml 650 ml Balance 1460 ml 350 ml APARNA BRADLEY MD Dec 10, 2018 12:07
[2018-12-10] MEDS ORDERED: OXYC1TAB15 PO (12:11)
[2018-12-10] MEDS ORDERED: DOCU-109 PO (12:11)
--- NOTE | 2018-12-10 12:13 | DISCH ---
DISCHARGE INSTRUCTIONS Condition on Discharge Condition on Discharge: Stable Activity After Discharge Activity Instructions for Disc: Activity as tolerated, Avoid exertion Bathing Instructions: Shower-keep dressing dry Lifting Instructions after Dis: No heavy lifting, No pulling or pushing, Do not lift >10 pounds Driving Instructions after Dis: No driving for 2 weeks Diet after Discharge Diet after Discharge: Regular Additional Diet Restrictions: resume home diet Diet Texture: Regular Liquid Texture: Thin Liquid Swallowing Supervision: None needed Wound Incision Care Wound/Incision Care: Ice to area for comfort, Change dressing, Reinforce dressing PRN Other wound/incision instructi: may remove dressing in 48 hours if dry then may shower Wound Care Equipment: Dressings Contacting the after DC Call your doctor for: Concerns you may have Follow-Up Follow up with: Dr. Bradley's nurse in 2 weeks [phone] APARNA BRADLEY MD Dec 10, 2018 12:13
--- NOTE | 2018-12-10 12:29 | NUR ---
VOIDED 200 CC CLEAR YELLOW URINE; BLADDER SCAN PERFORMED =READ 858CC. STRAIGHT CATH PERFORMED. RETURNS. DRESSING TO BACK CHANGED CLEANSED WITH CHLOR PREP THAN 4X4'S AND ABD APPLIED WITH PAPER TAPE. Addendum: 12/10/18 at 1241 by HAKAN WEBB RN RETURN OF 900 CC YELLOW URINE.
--- NOTE | 2018-12-10 16:00 | NUR ---
up to the bathroom and voided 400 cc yellow urine. states he feels like he emptied his bladder.
[2018-12-10 16:01] VITALS: BP 145/66
[2018-12-10] MEDS: LOSARTAN POTASSIUM 50 MG TABLET. PO SCH (16:21)
--- NOTE | 2018-12-10 17:52 | NUR ---
transferred to room 444. here . reviewed discharge instructions with Krish and his . reviewed restrictions to activities of daily living such as bathing, exercise and incisional care. demonstrated dressing change to . reviewed medications to be avoided for the next 6 months such as Advil and Aleve. reinforced the need to wear brace for 3 months. will have shift supervisor film processing do post void residual scan next shift to ensure he is emptying his bladder; he agrees.
[2018-12-10 19:00] VITALS: BP 151/67
[2018-12-10 23:00] VITALS: BP 132/57
[2018-12-11 03:00] VITALS: BP 152/63
[2018-12-11] MEDS: PANTOPRAZOLE 40 MG TABLET.DR. PO SCH (06:30)
[2018-12-11 07:00] VITALS: BP 183/73
--- NOTE | 2018-12-11 07:25 | NUR ---
Pt. voided 275cc clear yellow urine without difficulty. PVR reading 976cc. No bladder distention noted.
--- NOTE | 2018-12-11 08:30 | NUR ---
Pt. voided approx. 275cc clear yellow urine. Bladder scanned using different scanner. PVR 166cc.
[2018-12-11] MEDS: amLODIPine BESYLATE 5 MG TABLET PO SCH (08:31)
[2018-12-11 08:32] VITALS: BP 183/73
[2018-12-11] MEDS: LOSARTAN POTASSIUM 50 MG TABLET. PO SCH (08:32)
[2018-12-11] MEDS: DOCUSATE SODIUM 100 MG CAPSULE. PO SCH (08:33)
[2018-12-11] MEDS: ASPIRIN ENTERIC COATED 81 MG TABLET.DR. PO SCH (08:33)
[2018-12-11] MEDS ORDERED: POLYETHYLENE GLYCOL 3350 17 GM PACKET. PO SCH (09:00)
[2018-12-11] MEDS: POTASSIUM CL 20MEQ D5-0.45NACL 1,000 ML IV SCH (10:00)
--- NOTE | 2018-12-11 11:13 | NUR ---
Pt. discharged to home with Rx, dressing supplies and Dr. Walsh's post op instructions. Pt and verbalized understanding of discharge instructions. Back dressings CDI, changed per LUZ Craig this am. LSO brace in place.
--- NOTE | 2018-12-14 11:07 | PATHOLOGY ---
[facility] Accession Number: [id number] . 01 Material submitted: . vertebral column - LUMBAR DISC AND DECOMPRESSION . 01 Clinical history: . Lumbar pseudoarthrosis, stenosis. . 02 Diagnosis: Lumbar disc and decompression: - Synovium and fibrocartilage with degenerative change and calcification. - Unremarkable skeletal muscle. - Negative for malignancy. (MAP:[facility] [place]; 12/13/2018) . Co-review: Dr. Petty HEBERT 12/14/2018 1046 Local . 02 Electronically signed: . Burak Holloway MD, Pathologist NPI- [id number] . 01 Gross description: . Received in formalin labeled "Javan, Krish, lumbar disc and decompression" is a 5.0 x 4.5 x 1.7 cm aggregate of huston-white bony tissue and huston-white friable soft tissue. Vehicle Cost Engineer tissue is submitted in cassette A1 following decalcification. ([facility] [place]; 12/12/2018) [facility] 12/12/2018 1211 Local . 02 Pathologist provided ICD-10: M48.061 . 02 CPT . 450489, 965332 Specimen Comment: A courtesy copy of this report has been sent to Specimen Comment: [phone], . Specimen Comment: Report sent to / DR MOYA Performed at: 01 [facility] [address], [place], [place] [id number] MD Shivam Lopez MD Phone: [phone] Performed at: [address] [id number] MD Katya Brooks MD Phone: [phone]
--- NOTE | 2018-12-17 19:00 | OP ---
DATE OF SURGERY: 12/09/2018 PREOPERATIVE DIAGNOSIS: Pseudoarthrosis L2-L3 with lumbar radiculopathy. POSTOPERATIVE DIAGNOSIS: Pseudoarthrosis L2 L3 with lumbar radiculopathy. OPERATION PERFORMED: 1. Removal of hardware L2-L3, lateral transfacet approach with removal of posteriorly migrated interbody fusion cage L2-L3. 2. Replacement of hardware L2-L3 with posterolateral fusion L2-L3 using allograft and autograft bone. The operation was done with multimodality monitoring, fluoroscopy, microscopic dissection, BrainLAB guidance. SURGEON: Priyank Bradley M.D. ACCOUNT RESOLUTION ANALYST: Bonny Arvizu APRN. She assisted with the decompression, removal and replacement of hardware as well as removal of the interbody fusion cage. OPERATIVE INDICATIONS: The patient is a pleasant 78-year-old man who underwent an extension of a previous fusion to include L2-L3. He developed a pseudoarthrosis at this level. He did have an interbody fusion cage. He developed problems with radiculopathy with some unsteadiness overtime and was found to have a posteriorly migrated interbody fusion cage along with the nonunion at this level. I recommended removal of the hardware and removal of the interbody fusion cage and then fusing him to eliminate the pseudoarthrosis. He understood the rationale for surgery and wished to go ahead. His previous fusion of L3, L4 and L5, there was a solid fusion at that level. I therefore recommended removal of the hardware at L2-L3 and perform the surgery at this level alone. DESCRIPTION OF PROCEDURE: Following general endotracheal anesthesia, the patient was positioned prone on the Yahir table. The lumbar region was prepped and draped in the standard fashion. CYNTHIA hose and AV impulse boots were applied for DVT prophylaxis. The microscope was draped. Fluoroscopy was draped and brought into field. Monitoring was established. Ancef 2 g was given less than 1 hour prior to the initiation of surgery. A midline incision was made extending from upper L2 to inferior L3. I dissected down through skin and subcutaneous tissue and reflected the paraspinal muscles and exposed the hardware at L2-L3 bilaterally. I used a cutting bur and cut the rods on each side, removed the rods and then removed the screws at L2 and L3 bilaterally. Prior to the initiation of the surgery, I did place iliac pins in the left iliac crest and BrainLAB system was initialized and I used BrainLAB guidance throughout the operation. I then retapped the screw openings using stimulated EMG monitoring to assure that there were no difficulties. I then placed screws in L2 and L3 bilaterally. I did distract the disc space slightly. I brought in the high speed air drill and burred from the right side. I burred the facet down and created an exposure into the disc space from the side. I entered in the disc space. The cage was very far medial and posteriorly and with some difficulty and work, I was able to reach and grasp the cage and was able to remove it in toto. I placed sequentially larger screws until I felt that I had good fixation at L2 and L3. I excoriated the transverse processes and lateral facets and aspirated 20 mL of bone marrow from the left iliac crest and I then mixed this with the allograft bone I obtained from the decompression and placed this into each gutter. The screws were placed and the rods were placed. Nuts were applied and the system was torqued sequentially, so at this point, then I had a construct at L2-L3 with an excellent posterolateral fusion. The dura had been decompressed with removal of the posteriorly migrated cage. I irrigated copiously with antibiotic solution. At this point, I closed the wound in layers with absorbable suture and skin was closed with skin puma. I felt the surgery went very well and the patient awakened uneventfully and taken to recovery room in excellent condition. I was quite pleased with the surgery. PRIYANK BRADLEY MD DR: NISHA/angie JOB#: [id number] / [id number] ARCHIE
== END 2018-12-11 11:16 | disposition home or self-care (01) | DRG 460 ==
LOC: OPSVCIP 06:17 → 4 SOUTHEST 17:25 → 4 NORTH 12-10 17:38
PROVIDERS: ADMIT Neurological Surgery; ATTEND Neurological Surgery
PROC: 0SP00AZ Removal of Interbody Fusion Device from Lumbar Vertebral Joint, Open Approach (ICD-10-PCS; 2018-12-09)
PROC: 00NY0ZZ Release Lumbar Spinal Cord, Open Approach (ICD-10-PCS; 2018-12-09)
PROC: 0SB20ZZ Excision of Lumbar Vertebral Disc, Open Approach (ICD-10-PCS; 2018-12-09)
PROC: 01NB0ZZ Release Lumbar Nerve, Open Approach (ICD-10-PCS; 2018-12-09)
PROC: 07DR0ZZ Extraction of Iliac Bone Marrow, Open Approach (ICD-10-PCS; 2018-12-09)
PROC: 4A11X4G Monitoring of Peripheral Nervous Electrical Activity, Intraoperative, External Approach (ICD-10-PCS; 2018-12-09)
PROC: 0SG0071 Fusion of Lumbar Vertebral Joint with Autologous Tissue Substitute, Posterior Approach, Posterior Column, Open Approach (ICD-10-PCS; principal; 2018-12-09 08:30)
DX: M96.0 Pseudarthrosis after fusion or arthrodesis (principal); M48.062 Spinal stenosis, lumbar region with neurogenic claudication; M54.16 Radiculopathy, lumbar region; I10 Essential (primary) hypertension; Y83.8 Other surgical procedures as the cause of abnormal reaction of the patient, or of later complication, without mention of misadventure at the time of the procedure; Z85.820 Personal history of malignant melanoma of skin; Z82.49 Family history of ischemic heart disease and other diseases of the circulatory system; Z80.9 Family history of malignant neoplasm, unspecified; Y92.89 Other specified places as the place of occurrence of the external cause
CPT/HCPCS: 36415; 72131; 76000; 86850; 86900; 86901; 88304; 88311; A7015; C1713; C9359; J0171; J0330; J0690; J1100; J1170; J1885; J2001; J2370; J2405; J2704; J3010; J3490; J7030; J7120; 97110; 97116; 97530; G0378

== ENCOUNTER → 2019-02-02 | Outpatient (CLI) | payer MEDICARE, OTHER ==
[~2019-02-02] MED LIST changes: -BACITRACIN 50,000 UNIT in IV NORMAL SALINE 1000ML BAG 1,000 ML IRR ONE; -BUPIVACAINE-EPI 0.5%-1:200000 MPF 30 ML VIAL. INJ ONE; +OXYC1TAB15 PO; -ceFAZolin SODIUM 3 GM in IV DEXTROSE 5% 100ML 100 ML IV PRN
--- NOTE | 2019-02-02 12:42 | KCIC ---
EXAM: LUMBAR SPINE 3 VIEWS. HISTORY: Lumbar fusion COMPARISON: 12/09/2018. FINDINGS: There are instrumented anterior fusion changes from L3 through L5 with discectomy and interbody grafting. There are instrumented posterior fusion changes at L2-3 and L4-5. Partial laminectomy changes are noted at L2 and L3. There is a mild levoscoliosis at L1-2. Mild wedging of the inferior endplate of T12 is likely developmental. Degenerative disc disease appears mild at L2-3. IMPRESSION: 1. L3-L5 instrumented anterior fusion. L2-3 and L4-5.. 2. Mild degenerative disc disease at L2-3. Electronically signed by: Damon Dasilva MD (02/02/2019 12:39 PM) [facility]
== END | disposition home or self-care (01) ==
LOC: KCIC 10:54
PROVIDERS: ATTEND Neurological Surgery
DX: M51.36 Other intervertebral disc degeneration, lumbar region (principal); Z98.1 Arthrodesis status
CPT/HCPCS: 72100

== ENCOUNTER → 2020-10-31 | Outpatient (CLI) | payer MEDICARE, OTHER ==
[~2020-10-31] MED LIST changes: +AMLO-186 PO; +AMLO-187 PO; -AMLO10TA8 PO; -AMLO5TAB10 PO; +METH-562 PO; -METH750T2 PO
--- NOTE | 2020-10-31 12:16 | KCIC ---
EXAM: Lumbar spine, 3 views. HISTORY: Stenosis. COMPARISON: 02/02/2019 FINDINGS: 3 views of the lumbar spine are obtained. There is instrumented posterior spinal fusion at L2-L3 and L4-L5. There are disc space fusion devices at L3-L4 and L4-L5. There is lucency surrounding the right L2 screw and left L4 screw. This can be seen with loosening. There is mild levoscoliosis. There is grade 1 anterolisthesis of L4 on L5. There is multilevel endplate remodeling. There are mult iple endplate Schmorl's nodes. There is chronic mild anterior wedging of T12 and L1. There is facet a rthropathy throughout the lumbar spine. IMPRESSION: 1. Instrumented fusion at L2-L5. There is slight lucency surrounding the right L2 and left L4 screws. This can be seen with loosening. 2. Multilevel degenerative change, described above. Electronically signed by: Teresa Pena MD (10/31/2020 12:14 PM) [id number]
== END ==
LOC: KCIC 11:29
PROVIDERS: ATTEND Neurological Surgery
DX: M47.816 Spondylosis without myelopathy or radiculopathy, lumbar region (principal); M48.061 Spinal stenosis, lumbar region without neurogenic claudication; M41.86 Other forms of scoliosis, lumbar region; M43.16 Spondylolisthesis, lumbar region; M51.46 Schmorl's nodes, lumbar region; M48.8X6 Other specified spondylopathies, lumbar region; M48.55XD Collapsed vertebra, not elsewhere classified, thoracolumbar region, subsequent encounter for fracture with routine healing; Z98.1 Arthrodesis status
CPT/HCPCS: 72100

== ENCOUNTER → 2020-11-20 | Outpatient (CLI) | payer MEDICARE, OTHER ==
--- NOTE | 2020-11-20 13:03 | KCIC ---
EXAMINATION: Magnetic resonance imaging (MRI) of the cervical and lumbar spine without contrast 2020 10:25 AM HISTORY: Bilateral upper extremity pain and numbness. Bilateral lower extremity weakness and numbness . Balance issues when walking. TECHNIQUE: Multiplanar multi-weighted MRI of the cervical and lumbar spine was performed without intr avenous contrast using the standard cervical and lumbar spine protocol. Contrast information: None administered. COMPARISON: CT lumbar spine 12/09/2018, MRI cervical spine 06/09/2017, MRI lumbar spine 12/11/2016 FINDINGS: Cervical spine: There is 2 mm retrolisthesis of C5 on C6. 1 mm anterolisthesis of C7 on T1. There is moderate to adva nced disc height loss at C5-C6. Moderate disc height loss at C6-C7. There is mild disc height loss at C4-C5. Disc desiccation is identified at all levels of the cervical spine. Cervical spinal cord sign al intensity is normal in all sequences. Vertebral artery flow voids are maintained. Posterior fossa is normal in appearance. Modic type II endplate degenerative changes are identified at C5-C6. No acut e fracture is identified. No significant marrow edema. Posterior elements are intact. Paraspinal soft tissues are normal in appearance. 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 C2-C3: Disc is normal in configuration. No significant facet arthropathy. No neuroforaminal or spinal canal stenosis. C3-C4: There is a posterior disc osteophyte complex. Mild facet and uncovertebral joint disease. Mild bilateral neuroforaminal stenosis. Mild spinal canal stenosis, exacerbated by ligamentum flavum info lding and congenital narrowing of the spinal canal. Findings are stable from prior examination. C4-C5: There is disc bulge with central disc protrusion. Mild facet and uncovertebral joint disease. Mild bilateral neuroforaminal stenosis. Mild canal stenosis, exacerbated by ligamentum flavum infoldi ng and congenital narrowing of the spinal canal. Findings are stable from prior examination. C5-C6: There is a posterior disc osteophyte complex with left central disc extrusion. Mild to moderat e facet arthropathy. Moderate uncovertebral joint disease. Severe left and moderate right neuroforami nal stenosis. Moderate spinal canal stenosis, exacerbated by ligamentum flavum infolding and congenit al narrowing of the spinal canal. There is deformity of the ventral cord without cord signal alterati on. Findings are stable from the prior examination. Findings are stable from prior examination. C6-C7: There is a posterior disc osteophyte complex. Mild facet arthropathy. Moderate left and modera te uncovertebral joint disease. Severe left and moderate right neuroforaminal stenosis. Moderate spin al canal stenosis with mild deformity ventral cord. No cord signal alteration. C7-T1: Disc is normal in configuration. No neuroforaminal or spinal canal stenosis. Lumbar spine: Alignment of the lumbar spine appears to be within normal limits. Conus medullaris remains at L1. Dis luis spinal cord signal intensity is normal in all sequences. Posterior fusion is identified at L2-L3 with bilateral pedicle screws and dual rods. Posterior and interbody fusion is identified at L4-L5 wi th bilateral pedicle screws and dual rods. Interbody fusion identified at L3-L4. Previously seen inte rbody prosthesis at L2-L3 has been removed. Abdominal aorta is normal in caliber. No suspicious retro peritoneal abnormality. L1-L2: There is mild circumferential disc bulge. Mild facet arthropathy. No significant neuroforamina l or spinal canal stenosis, although evaluation is limited by artifact from hardware at L2. L2-L3: There is a mild disc bulge. Laminectomy decompression the spinal canal without residual spinal canal stenosis. Limited evaluation of neural foraminal stenosis at the hardware. L3-L4: This level is fused and decompressed. No residual spinal canal stenosis. L4-L5: Subtle is fuse d and decompressed by a right sided hemilaminectomy and facetectomy. No residual neuroforaminal or sp inal canal stenosis. L4-L5: This level is fused and decompressed by partial laminectomy. No residual spinal canal stenosis . L5-S1: Mild disc bulge. Moderate facet arthropathy. Mild bilateral neuroforaminal stenosis. No spinal canal stenosis. IMPRESSION: 1. Mild to moderate cervical spondylosis as described in detail above. 2. Posterior fusion from L2 through L5 as detailed above. Interval removal of intervertebral disc pro sthesis at L2-L3. Mild residual lumbar spondylosis as detailed above. Evaluation is partly limited by hardware. Electronically signed by: Noa Mcgill MD (11/20/2020 1:01 PM) [id number]
== END ==
LOC: KCIC MRI 09:56
PROVIDERS: ATTEND Neurological Surgery
DX: M47.817 Spondylosis without myelopathy or radiculopathy, lumbosacral region (principal); M47.812 Spondylosis without myelopathy or radiculopathy, cervical region; M48.07 Spinal stenosis, lumbosacral region; M48.02 Spinal stenosis, cervical region; M43.12 Spondylolisthesis, cervical region; M43.13 Spondylolisthesis, cervicothoracic region; M50.221 Other cervical disc displacement at C4-C5 level; M25.78 Osteophyte, vertebrae; M43.8X2 Other specified deforming dorsopathies, cervical region
CPT/HCPCS: 72141; 72148